=== PATIENT | male | born 1970 | race Caucasian/White ===

== ENCOUNTER 2021-05-19 19:51 | Emergency (ER) | payer MEDICAID ==
[~2021-05-19] VITALS: Ht 175.3 cm; Wt 104.0 kg
[2021-05-19] MEDS ORDERED: TETANUS, DIPHTHERIA, PERTUSSIS VAC/PF 0.5ML (>10YR OLD) IM ONE (20:15)
[2021-05-19 22:14] VITALS: BP 131/70
== END 2021-05-20 00:01 | disposition home or self-care (01) ==
LOC: ER 19:51
DX: S00.81XA Abrasion of other part of head, initial encounter (principal); S10.81XA Abrasion of other specified part of neck, initial encounter; R07.81 Pleurodynia; S50.312A Abrasion of left elbow, initial encounter; S50.311A Abrasion of right elbow, initial encounter; S80.212A Abrasion, left knee, initial encounter; S80.211A Abrasion, right knee, initial encounter; Y04.2XXA Assault by strike against or bumped into by another person, initial encounter; Y93.89 Activity, other specified; Y92.481 Parking lot as the place of occurrence of the external cause; I10 Essential (primary) hypertension
CPT/HCPCS: 71045; 90471; 90715; 93005; 99285

== ENCOUNTER 2022-07-06 11:40 | Emergency (ER) | payer MEDICAID ==
[~2022-07-06] VITALS: Ht 175.3 cm; Wt 109.0 kg
[2022-07-06 11:45] VITALS: BP 122/79
[2022-07-06] MEDS ORDERED: ACETAMINOPHEN 325MG TABLET PO STA (12:37)
[2022-07-06] MEDS ORDERED: MAGNESIUM/ALUMINUM HYDROXIDE/SIMETHICONE 30ML UDC PO STA (12:37)
[2022-07-06] MEDS ORDERED: ONDANSETRON 4MG ODT PO STA (12:37)
[2022-07-06] MEDS ORDERED: VISCOUS LIDOCAINE 2% 15 ML UDC PO STA (12:37)
[2022-07-06 14:10] LABS: BASOPHILS % 0.3 % (0.0-2.0); EOSINOPHILS % 2.3 % (0.0-5.0); HEMOGLOBIN. 14.4 g/dL (14.0-18.0); LYMPHOCYTES % 16.1 % (20.0-50.0); MEAN CORPUSCULAR HEMOGLOBIN 28.9 pg (28.0-32.0); MEAN CORPUSCULAR VOLUME 84.1 fL (80.0-94.0); MEAN PLATELET VOLUME 7.2 fl (7.4-10.4); MONOCYTES % 11.8 % (2.0-8.0); NEUTROPHILS % 69.5 % (40.0-76.0); PLATELET 252 x1000/uL (130-400); RED BLOOD CELL COUNT 4.99 mill/uL (4.7-6.1); RED CELL DISTRIBUTION WIDTH 13.3 % (11.6-14.6)
[2022-07-06 14:18] LABS: CLARITY URINE CLEAR (CLEAR); COLOR URINE YELLOW (YELLOW); KETONES URINE NEGATIVE (NEGATIVE); LEUKOCYTE ESTERASE URINE NEGATIVE (NEGATIVE); NITRITE URINE NEGATIVE (NEGATIVE); OCCULT BLOOD URINE 1+ (NEGATIVE); PROTEIN URINE NEGATIVE (NEGATIVE); SPECIFIC GRAVITY URINE 1.016 (1.005-1.030); UROBILINOGEN URINE 0.2 E.U./dL (0.2-1.0)
[2022-07-06 14:18] LABS: CHLORIDE 104 mEq/L (98-107)
[2022-07-06 14:20] LABS: INR 1.1; PROTHROMBIN TIME 11.4 sec (9.6-11.0)
[2022-07-06 14:24] LABS: ETHANOL BLOOD < 10 mg/dL
[2022-07-06] MEDS ORDERED: MAG355OR21 MT (14:35)
[2022-07-06] MEDS ORDERED: PROT40 MT (14:35)
[2022-07-06 15:00] LABS: *AMPHETAMINES SCREEN URINE NEGATIVE (NEGATIVE); *BARBITURATES SCREEN URINE NEGATIVE (NEGATIVE); *BENZODIAZEPINES SCREEN URINE NEGATIVE (NEGATIVE); *COCAINE SCREEN URINE NEGATIVE (NEGATIVE); CANNABINOID URINE SCREEN NEGATIVE (NEGATIVE); METHADONE URINE SCREEN NEGATIVE (NEGATIVE); OPIATES URINE SCREEN NEGATIVE (NEGATIVE); PHENCYCLIDINE URINE SCREEN NEGATIVE (NEGATIVE)
== END 2022-07-06 15:21 | disposition home or self-care (01) ==
LOC: ER 11:40
DX: K29.70 Gastritis, unspecified, without bleeding (principal); I10 Essential (primary) hypertension; Z13.9 Encounter for screening, unspecified; Z90.49 Acquired absence of other specified parts of digestive tract
CPT/HCPCS: 36415; 76705; 80053; 80305; 80320; 81003; 83690; 85025; 85610; 99284; Q0162; G0480

== ENCOUNTER 2024-07-05 13:01 | Emergency (ER) | payer MEDICAID ==
[~2024-07-05] VITALS: Ht 177.8 cm; Wt 120.0 kg
[~2024-07-05 13:01] MED LIST: MAG355OR21 MT; PROT40 MT
[2024-07-05 13:45] VITALS: O2SAT 99
[2024-07-05] MEDS: IBUPROFEN 800MG TABLET PO ONE (20:00)
[2024-07-05] MEDS: ACETAMINOPHEN 325MG TABLET PO ONE (20:00)
[2024-07-05 21:40] VITALS: BP 131/67; PULSE 68; RESP 18; TEMP 36.94740; O2SAT 100
[2024-07-05] MEDS ORDERED: TOPUD MT (21:57)
[2024-07-05] MEDS ORDERED: IBUP-1525 MT (21:57)
== END 2024-07-05 22:04 | disposition home or self-care (01) ==
LOC: ER 13:01
DX: M19.021 Primary osteoarthritis, right elbow (principal); M25.521 Pain in right elbow; Z90.49 Acquired absence of other specified parts of digestive tract; Z79.899 Other long term (current) drug therapy; Z79.1 Long term (current) use of non-steroidal anti-inflammatories (NSAID)
CPT/HCPCS: 73080; 99283